=== PATIENT | female | born 1965 | race Caucasian/White ===

== ENCOUNTER → 2017-11-22 15:27 | Outpatient (CLI) | payer OTHER, SELFPAY ==
--- NOTE | 2017-11-22 | DI.CT.S_ITS ---
PROCEDURE: CT ABDOMEN PELVIS W CON INDICATIONS: Right upper and lower abdominal pain TECHNIQUE: After the administration of oral and intravenous contrast, 5 mm thick sections acquired from the diaphragms to the symphysis. 5 mm thick coronal and sagittal reformats were performed. For radiation dose reduction, the following was used: automated exposure control, adjustment of mA and/or kV according to patient size. COMPARISON: [facility], CT, ABDOMEN/PELVIS WITH CONTRAST, 03/07/2017, 13:19. FINDINGS: Image quality: Excellent. ABDOMEN: Lung bases: Lung bases are clear. Heart size is normal. Solid organs: Liver is normal in size and enhancement. Gallbladder has been previously resected. Biliary system is non-dilated. Pancreas enhances normally. Spleen is normal in size and enhancement. No adrenal nodules. Kidneys are normal in size and enhancement, without hydronephrosis. Peritoneum and bowel: Stomach, small bowel, and colon loops are normal in caliber and wall thickness. No free fluid or air. Nodes and vessels: No retroperitoneal or mesenteric adenopathy. Aorta and inferior vena cava are normal in caliber. Miscellaneous: No ventral hernias. PELVIS: Genitourinary: Bladder wall thickness is normal. Miscellaneous: No inguinal hernias or adenopathy. Bones: No suspicious bony lesions. No vertebral body compression fractures. IMPRESSION: Prior cholecystectomy, no evidence of active inflammation or underlying neoplasm found. Source of right upper and right lower abdominal pain is not seen. No CT evidence of appendicitis found. Dictated by: Zack Arceo M.D. on 11/22/2017 at 17:33 Approved by: Zack Arceo M.D. on 11/22/2017 at 17:34
== END ==
PROVIDERS: PCP Nurse Practitioner Family; Visit Provider Physician Assistant Medical
DX: R10.11 Right upper quadrant pain (principal); R10.31 Right lower quadrant pain
CPT/HCPCS: 74177

== ENCOUNTER → 2017-12-07 09:38 | Outpatient (CLI) | payer OTHER, SELFPAY ==
--- NOTE | 2017-12-07 | DI.RAD.S_ITS ---
PROCEDURE: FL SMALL BOWEL FOLLOW THROUGH INDICATIONS: Right lower quadrant pain COMPARISON: None. 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 No suspicious abdominal calcifications. Visualized solid organ contours appear normal. No suspicious bony abnormalities. Cholecystectomy clips noted. Small bowel: There is normal transit time of barium through the small bowel, transit complete into the cecum and descending colon on the first film. Small bowel loops are of normal caliber throughout. Mucosal folds are smooth and of normal thickness. No strictures, intraluminal masses, or extrinsic mass effects are noted. The terminal ileum is identified, and is normal in morphology. IMPRESSION: Normal small bowel series. Transit of contrast was complete on the initial 20 minute film. Numerous spot films were obtained under fluoroscopy over the right lower quadrant region. Normal terminal ileum was identified but the appendix was not seen. No pain was elicited on paddle compression of the region. Dictated by: Sai Garcia M.D. on 12/07/2017 at 11:42 Approved by: Sai Garcia M.D. on 12/07/2017 at 11:45
== END ==
PROVIDERS: PCP Nurse Practitioner Family; Visit Provider Physician Assistant Medical
DX: R10.31 Right lower quadrant pain (principal)
CPT/HCPCS: 74250